=== PATIENT | female | born 1945 | race Caucasian/White ===

== ENCOUNTER 2018-08-28 10:41 | Day surgery (SDC) | payer OTHER, MEDICARE ==
[2018-08-25 12:16] LABS: ALBUMIN 3.8 g/dL (3.4-5.0); CALCIUM 9.2 mg/dL (8.5-10.1); CHLORIDE 109 mmol/L (98-107)
[2018-08-25 12:22] LABS: ALANINE AMINOTRANSFERASE 27 U/L (12-78); ALKALINE PHOSPHATASE 78 U/L (45-117); ANION GAP 7 mmol/L (5-15); BILIRUBIN,TOTAL 0.4 mg/dL (0.2-1.0); TOTAL PROTEIN 6.4 g/dL (6.4-8.2)
[~2018-08-28] VITALS: Ht 167.6 cm; Wt 82.4 kg
[~2018-08-28 10:41] MED LIST: ALBU90AE INH; ASPI-496 PO; BUSP5TAB2 PO; CALC-126 PO; CETI10TA18 PO; CHOL200024 PO; FLUT1DIS3 INH; FLUT9.9S NS; HYDR25TA6 PO; LOSA100T14 PO; PROP10TA16 PO; ROSU20TA2 PO; TRAZ-137 PO; VIT1TABL32 PO; cloniDINE/PF 100 MCG/ML, 10 ML ONE
[2018-08-28 11:07] VITALS: BP 129/82
[2018-08-28] MEDS ORDERED: LACTATED RINGERS 1,000 ML IV SCH (11:34)
[2018-08-28] MEDS ORDERED: MIDAZOLAM 1 MG/ML, 2ML ONE (11:46)
[2018-08-28] MEDS ORDERED: FENTANYL PF 100 MCG/2ML ONE (11:46)
[2018-08-28] MEDS ORDERED: ALBUTEROL/IPRATROPIUM 2.5MG/0.5MG, 3 ML NPPB PRN (15:00)
[2018-08-28] MEDS ORDERED: FENTANYL PF 100 MCG/2ML IV PRN (15:00)
[2018-08-28] MEDS ORDERED: KETOROLAC 30 MG/1 ML IV PRN (15:00)
[2018-08-28] MEDS ORDERED: ONDANSETRON 2MG/ML, 2ML IV PRN (15:00)
[2018-08-28] MEDS ORDERED: OXYcodone 5 MG/5 ML ORAL.SOL UDC PO PRN (15:00)
[2018-08-28] MEDS ORDERED: MIDAZOLAM 1 MG/ML, 2ML IV PRN (15:00)
[2018-08-28] MEDS ORDERED: PROMETHAZINE 25 MG/ML, 1ML IV PRN (15:00)
[2018-08-28] MEDS ORDERED: ACETAMINOPHEN 325 MG TABLET PO PRN (15:00)
[2018-08-28] MEDS ORDERED: hydrALAzine 20 MG/ML, 1ML IV PRN (15:00)
[2018-08-28] MEDS ORDERED: CEFAZOLIN 1,000 MG ONE (17:57)
[2018-08-28] MEDS ORDERED: LIDOCAINE-MPF 2% ,5ML ONE (17:57)
[2018-08-28] MEDS ORDERED: PROPOFOL 10 MG/ML, 20ML ONE (17:57)
[2018-08-28] MEDS ORDERED: ONDANSETRON 2MG/ML, 2ML ONE (17:57)
[2018-08-28] MEDS ORDERED: DEXAMETHASONE 4 MG/ML, 1ML ONE (17:57)
[2018-08-28] MEDS ORDERED: BUPIVACAINE/PF 0.5% ONE (17:57)
[2018-08-28] MEDS ORDERED: ACETAMINOPHEN 650 MG/20.3 ML UDC ONE (19:19)
[2018-08-28] MEDS ORDERED: OXYcodone 5 MG/5 ML ORAL.SOL UDC ONE (19:19)
[2018-08-28] MEDS ORDERED: hydrALAzine 20 MG/ML, 1ML ONE (19:56)
[2018-08-28 20:32] VITALS: BP 121/65
== END 2018-08-28 22:38 | disposition home or self-care (01) ==
LOC: OUT 10:41 → 4NOR 20:21 → OUT 22:38
PROVIDERS: ATTEND Orthopaedic Surgery
DX: M20.21 Hallux rigidus, right foot (principal); Z88.8 Allergy status to other drugs, medicaments and biological substances; Z79.82 Long term (current) use of aspirin; J45.909 Unspecified asthma, uncomplicated; Z86.718 Personal history of other venous thrombosis and embolism; Z87.891 Personal history of nicotine dependence; Z72.89 Other problems related to lifestyle
CPT/HCPCS: 28750; 36415; 64445; 73660; 76000; 80053; 93005; C1713; J0360; J0690; J0735; J1100; J2250; J2405; J2704; J3010; J3490; G0378